=== PATIENT | male | born 1940 | race Caucasian/White ===

== ENCOUNTER 2020-04-07 08:49 | Emergency (ER) | payer MEDICARE, OTHER ==
--- NOTE | 2020-04-07 09:39 | ER Document Report ---
ED General - General Chief Complaint: Flank Pain Stated Complaint: RIGHT BACK/FLANK PAIN Time Seen by Provider: 04/07/20 09:32 Primary Care Provider: ERNESTINE BOOTH MD [Primary Care Provider] - Follow up as needed Mode of Arrival: Ambulatory Information source: Patient Notes: 79-year-old male patient presents emergency department chief complaint of right- sided flank pain that began abruptly at 330 this morning. He states the pain is severe. He states he has had a history of kidney stones and this pain is much worse than that. He denies any other associated symptoms. He reports he felt fine when he went to sleep last night. Denies any fever, chills, nausea, vom iting, diarrhea, chest pain or shortness of breath. - Related Data Allergies/Adverse Reactions: No Known Allergies Allergy (Verified 04/07/20 09:19) Past Medical History - General Information source: Patient - Social History Smoking Status: Never Smoker Frequency of alcohol use: None Family History: CAD, DM - Medical History Medical History: Negative Past Surgical History: Reports: Hx Herniorrhaphy Review of Systems - Review of Systems Genitourinary: Flank pain Neurological/Psychological: Other - Difficulty putting thoughts together -: Yes All other systems reviewed and negative Physical Exam - Vital signs Vitals: Temp Pulse Resp BP Pulse Ox 97.8 F 52 L 20 153/63 H 98 04/07/20 09:07 04/07/20 09:07 04/07/20 09:07 04/07/20 09:07 04/07/20 09:07 - Notes Notes: PHYSICAL EXAMINATION: GENERAL: Well-appearing, well-nourished and in no acute distress. HEAD: Atraumatic, normocephalic. EYES: Pupils equal round and reactive to light, extraocular movements intact, sclera anicteric, conjunctiva are normal. ENT: Nares patent, oropharynx clear without exudates. Moist mucous membranes. NECK: Normal range of motion, supple without lymphadenopathy LUNGS: Breath sounds clear to auscultation bilaterally and equal. No wheezes rales or rhonchi. HEART: Regular rate and rhythm without murmurs ABDOMEN: Soft, nontender, nondistended abdomen. No guarding, no rebound. No masses appreciated. Musculoskeletal: Normal range of motion, no pitting or edema. No cyanosis. NEUROLOGICAL: Cranial nerves grossly intact. Normal speech, normal gait. Normal sensory, motor exams PSYCH: Normal mood, normal affect. SKIN: Warm, Dry, normal turgor, no rashes or lesions noted. Course - Re-evaluation Re-evalutation: 04/07/20 09:38 I was called up to the triage area to evaluate this patient with the nurse. The nurse was concerned this patient is presenting with chief complaint of flank pain however patient was having difficulty putting his thoughts together kept saying I do not remember with basic questions. Patient is alert and oriented x4, he has no focal neurological deficits however he does report for the last hour he is at difficulty gathering his thoughts. He states his pain is worse than any kidney stone he has ever had. He does not appear to be in any acute distress at this time. I discussed the case briefly with attending physician Dr. Kim, we will initiate a stroke protocol but will also do a CTA of the chest abdomen and pelvis to ensure that patient's flank pain is not from an aortic dissection. 04/07/20 10:25 Patient reevaluated at this time. He has been to CT but we do not have any results yet. He is currently rating his pain 7/10 to the right flank, states it is a constant pain. Denies any alleviating or exacerbating factors. He does not appear to be in any acute distress at this time. 04/07/20 12:12 Call placed to [facility] to initiate request for transfer as patient has an infected kidney stone. Patient currently resting comfortably, he states the Toradol has completely relieved his pain. His vital signs are stable. 04/07/20 13:34 I have spoken with Dr. Mir from urology at [facility] and also the hospitalist. Both of these physicians do agree that patient needs to be transferred for stent placement. There working out the details on who will be accepting. Patient and spouse are updated on plan of care, they understand that he will be transferred to [facility] once we have an accepting physician and bed placement. Patient continues to deny any pain. 1700-patient reevaluated at this time, denies any pain. He is stable for transport. Transport is at the bedside. Patient was accepted by Dr. Cloud. - Vital Signs Vital signs: Temp Pulse Resp BP Pulse Ox 99.0 F 52 L 16 144/60 H 99 04/07/20 16:21 04/07/20 09:07 04/07/20 16:39 04/07/20 16:39 04/07/20 16:39 - Laboratory Result Diagrams: 04/07/20 10:31 04/07/20 10:31 Laboratory results interpreted by me: 04/07/20 04/07/20 04/07/20 10:31 10:31 10:31 WBC 19.3 H RBC 4.14 L Hgb 13.4 L Seg Neuts % (Manual) 93 H Lymphocytes % (Manual) 5 L Monocytes % (Manual) 2 L Abs Neuts (Manual) 17.9 H APTT 23.0 L BUN 21 H Glucose 116 H Urine Protein Urine Nitrite Ur Leukocyte Esterase 04/07/20 10:51 WBC RBC Hgb Seg Neuts % (Manual) Lymphocytes % (Manual) Monocytes % (Manual) Abs Neuts (Manual) APTT BUN Glucose Urine Protein 30 H Urine Nitrite POSITIVE H Ur Leukocyte Esterase SMALL H Discharge - Discharge Clinical Impression: Kidney stone on right side Urinary tract infection Qualifiers: Urinary tract infection type: site unspecified Hematuria presence: with hematuria Qualified Code(s): N39.0 - Urinary tract infection, site not specified Condition: Stable Disposition: [facility] Referrals: ERNESTINE BOOTH MD [Primary Care Provider] - Follow up as needed
[2020-04-07] MEDS ORDERED: KETOROLAC TROMETHAMINE INJ/PF 30 MG/1 ML SDV IV ONE (10:25)
--- NOTE | 2020-04-07 10:30 | RADIOLOGY REPORT (SQ) ---
EXAM DESCRIPTION: CT HEAD WITHOUT IMAGES COMPLETED DATE/TIME: 04/07/2020 10:06 am REASON FOR STUDY: stroke alert COMPARISON: None. TECHNIQUE: Axial images acquired through the brain without intravenous contrast. Images reviewed wi th bone, brain and subdural windows. Additional sagittal and coronal reconstructions were generated. Images stored on PACS. All CT scanners at this facility use dose modulation, iterative reconstruction, and/or weight based d osing when appropriate to reduce radiation dose to as low as reasonably achievable (ALARA). [facility]: Dose Right [facility]: CareDose [facility]: Dose Right [facility]: Teradose 4D [facility]: [employer]tank RADIATION DOSE: CT Rad equipment meets quality standard of care and radiation dose reduction techniq ues were employed. CTDIvol: 53.2 mGy. DLP: 1070 mGy-cm. LIMITATIONS: None. FINDINGS: There is diffuse age-appropriate cerebral and cerebellar volume loss. The areas of low-at tenuation in the supratentorial periventricular and subcortical white matter likely represent the seq uela of chronic microvascular ischemia. There is no acute intracranial hemorrhage, vascular territor ial infarct, extra-axial fluid collection, mass effect or midline shift. The caliber of the ventricl es is concordant with the degree of sulcation. The alonzo-white matter differentiation is preserved. There is no effacement of the cerebral sulci or basal subarachnoid cisterns. The orbits and globes are intact. There is mucoperiosteal thickening and partial opacification of th e maxillary sinuses. The mastoid air cells are clear. There is no fracture of the calvarium. IMPRESSION: 1. Sequela of chronic microvascular ischemia without a superimposed acute intracranial a bnormality. 2. Mucoperiosteal thickening or partial opacification of the maxillary sinuses. Correlation with cli nical findings to exclude an acute sinusitis is recommended. EVIDENCE OF ACUTE STROKE: NO. COMMENT: Quality ID # 436: Final reports with documentation of one or more dose reduction techniques (e.g., Automated exposure control, adjustment of the mA and/or kV according to patient size, use of iterative reconstruction technique) TECHNICAL DOCUMENTATION: JOB ID: [id number] 2010 [employer]- All Rights Reserved Reading location - IP/workstation name: [email or web address]
--- NOTE | 2020-04-07 10:39 | RADIOLOGY REPORT (SQ) ---
EXAM DESCRIPTION: CTA CHEST IMAGES COMPLETED DATE/TIME: 04/07/2020 10:10 am REASON FOR STUDY: R flank pain COMPARISON: None. TECHNIQUE: CT scan of the chest performed using helical scanning technique with dynamic intravenous contrast injection. Images reviewed with lung, soft tissue and bone windows. Reconstructed coronal and sagittal MPR images reviewed. Additional 3 dimensional post-processing performed to develop Maximal Intensity Projection images (CT P). All images stored on PACS. All CT scanners at this facility use dose modulation, iterative reconstruction, and/or weight based d osing when appropriate to reduce radiation dose to as low as reasonably achievable (ALARA). [facility]: Dose Right [facility]: CareDose [facility]: Dose Right [facility]: Teradose 4D [facility]: [employer] Interactive CONTRAST TYPE AND DOSE: Contrast/concentration: Isovue 350.00 mmol/ml; Total Contrast Delivered: 69. 0 ml; Total Saline Delivered: 70.0 ml RENAL FUNCTION: Due to the severity of the patient's conditions the CT was performed without a BUN o r creatinine test. RADIATION DOSE: CT Rad equipment meets quality standard of care and radiation dose reduction techniq ues were employed. CTDIvol: 2.8 - 17.0 mGy. DLP: 956 mGy-cm. LIMITATIONS: None. FINDINGS: LUNGS AND PLEURA: The trachea main bronchi are patent. There is no consolidation, ground- glass opacification, pleural effusion or pneumothorax AORTA AND GREAT VESSELS: No aneurysm or dissection of the thoracic aorta. HEART: Cardiomegaly. There is no pericardial effusion. PULMONARY ARTERIES: Nondiagnostic due to suboptimal contrast opacification. HILAR AND MEDIASTINAL STRUCTURES: No adenopathy or mass. HARDWARE: None in the chest. UPPER ABDOMEN: Refer to the separate report of the CT of the abdomen. THYROID AND OTHER SOFT TISSUES: No adenopathy or mass. BONES: No acute abnormality. 3D MIPS: Confirm above findings. OTHER: No other findings. IMPRESSION: No acute cardiopulmonary process. COMMENT: Quality ID # [id number]: Final reports with documentation of one or more dose reduction techniques (e.g., Automated exposure control, adjustment of the mA and/or kV according to patient size, use of iterative reconstruction technique) TECHNICAL DOCUMENTATION: JOB ID: [id number] 2010 [employer]- All Rights Reserved Reading location - IP/workstation name: [email or web address]
--- NOTE | 2020-04-07 10:47 | RADIOLOGY REPORT (SQ) ---
EXAM DESCRIPTION: CTA ABDOMEN/PELVIS W WO IMAGES COMPLETED DATE/TIME: 04/07/2020 10:10 am REASON FOR STUDY: R flank pain COMPARISON: CT of the abdomen and pelvis without contrast from 05/11/2013. TECHNIQUE: CT scan of the abdominal aorta extending to the iliac bifurcation performed with intraven ous contrast using helical scanning technique with dynamic intravenous contrast injection. Images rev iewed with lung, soft tissue, and bone windows. Reconstructed coronal and sagittal MPR images reviewe d. All images stored on PACS. Advanced 3D imaging as volume rendering, MIPS, SSD performed? yes All CT scanners at this facility use dose modulation, iterative reconstruction, and/or weight based d osing when appropriate to reduce radiation dose to as low as reasonably achievable (ALARA). [facility]: Dose Right [facility]: CareDose [facility]: Dose Right [facility]: Teradose 4D [facility]: [employer] CONTRAST TYPE AND DOSE: 69 mL Omnipaque 350- low osmolar. RENAL FUNCTION: Due to the severity of the patient's conditions the CT was performed without a BUN o r creatinine test. LIMITATIONS: None. FINDINGS: AORTA AND VESSELS: No aneurysm or dissection of the abdominal aorta. The celiac, SMA, bereket al arteries and HIWOT are patent. The iliac arteries are patent without stenosis, aneurysm or dissectio n. LUNG BASES: Refer to the separate CT of the chest report. LIVER: The morphology of the liver is noncirrhotic. There is no arterially enhancing hepatic mass. SPLEEN: No splenomegaly or splenic mass. PANCREAS: No acute gross abnormality of the pancreas. GALLBLADDER: No acute gross abnormality of the gallbladder. ADRENAL GLANDS: No mass or asymmetry RIGHT KIDNEY AND URETER: 7 mm calculus in the right ureterovesicular junction (image 235 of series 3) associated with moderate to severe ipsilateral hydroureteronephrosis, delayed uptake and excretion o f the intravenous contrast and asymmetric pararenal fluid. There there are additional calculi in the lower pole of the kidney that measure 9 mm and less than 3 mm. There is no solid renal mass. LEFT KIDNEY AND URETER: 3 mm caliceal calculus in the interpolar portion of the kidney. There is no solid mass, hydronephrosis, hydroureter or ureterolithiasis. RETROPERITONEUM: No retroperitoneal adenopathy, hemorrhage or mass. BOWEL AND PERITONEAL CAVITY: Colonic diverticulosis without diverticulitis. There is no bowel obstru ction, bowel wall thickening or pericolonic/ perienteric inflammation. There is no mesenteric adenop athy, free intraperitoneal fluid or mesenteric/ omental inflammation. APPENDIX: Normal. ABDOMINAL WALL: Fat containing right inguinal hernia. PELVIS: Prostatomegaly. BONY STRUCTURES: No acute abnormality. 3-D IMAGING: Confirms the above findings. OTHER: No other findings. IMPRESSION: 1. No abdominal aortic aneurysm, dissection or stenosis. 2. Obstructive 7 mm caliceal calculus in the right ureterovesicular junction associated with moderat e to severe ipsilateral hydroureteronephrosis. TECHNICAL DOCUMENTATION: JOB ID: [id number] Quality ID # [id number]: Final reports with documentation of one or more dose reduction techniques (e.g., Au tomated exposure control, adjustment of the mA and/or kV according to patient size, use of iterative reconstruction technique) 2010 [employer]- All Rights Reserved Reading location - IP/workstation name: [email or web address]
[2020-04-07 10:49] LABS: HEMATOCRIT 39.8 % (37.9-51.0); HEMOGLOBIN 13.4 g/dL (13.5-17.0); MEAN CORPUSCULAR HEMOGLOBIN 32.4 pg (27.0-33.4); MEAN CORPUSCULAR HGB CONC 33.7 g/dL (32.0-36.0); MEAN CORPUSCULAR VOLUME 96 fl (80-97); PLATELET COUNT 391 10^3/uL (150-450); RED BLOOD COUNT 4.14 10^6/uL (4.35-5.55); RED CELL DISTRIBUTION WIDTH 13.1 % (11.5-14.0); WHITE BLOOD COUNT 19.3 10^3/uL (4.0-10.5)
[2020-04-07 10:58] LABS: PROTHROMBIN TIME 12.9 SEC (11.4-15.4)
[2020-04-07 10:59] LABS: INTERNATIONAL RATION (INR) 0.95
[2020-04-07 11:05] LABS: ABSOLUTE MONOCYTES # (MANUAL) 0.4 10^3/uL (0.1-1.4); BASOPHILS % (MANUAL) 0 % (0-2); EOSINOPHILS % (MANUAL) 0 % (0-6); LYMPHOCYTES % (MANUAL) 5 % (13-45); MONOCYTES % (MANUAL) 2 % (3-13); SEGMENTED NEUTROPHILS % (MAN) 93 % (42-78); TOTAL CELLS COUNTED 100
[2020-04-07 11:07] LABS: OVALOCYTES SLIGHT; PLATELET COMMENT ADEQUATE; POIKILOCYTOSIS SLIGHT
[2020-04-07 11:15] LABS: ALBUMIN 3.9 g/dL (3.5-5.0); ALKALINE PHOSPHATASE 64 U/L (38-126); ASPARTATE AMINO TRANSFERASE 30 U/L (17-59); BILIRUBIN,DIRECT 0.1 mg/dL (0.0-0.4); BILIRUBIN,TOTAL 0.5 mg/dL (0.2-1.3); BLOOD UREA NITROGEN 21 mg/dL (7-20); CREATINE KINASE 110 U/L (55-170); GLUCOSE 116 mg/dL (75-110); TOTAL PROTEIN 6.6 g/dL (6.3-8.2)
[2020-04-07 11:21] LABS: APPEARANCE,URINE CLEAR; BILIRUBIN,URINE NEGATIVE (NEGATIVE); COLOR,URINE YELLOW; GLUCOSE, URINE NEGATIVE (NEGATIVE); KETONES,URINE NEGATIVE (NEGATIVE); LEUKOCYTE ESTERASE,URINE SMALL (NEGATIVE); NITRITE,URINE POSITIVE (NEGATIVE); PROTEIN,URINE 30 mg/dL (NEGATIVE); UROBILINOGEN,URINE NEGATIVE mg/dL (<2.0)
[2020-04-07 11:25] LABS: CREATINE KINASE MB 3.51 ng/mL (<4.55)
[2020-04-07 11:27] LABS: TROPONIN I < 0.012 ng/mL
[2020-04-07 11:35] LABS: ANION GAP 7 (5-19); CARBON DIOXIDE 30 mmol/L (22-30); CHLORIDE 103 mmol/L (98-107); POTASSIUM 4.5 mmol/L (3.6-5.0)
[2020-04-07] MEDS ORDERED: NORMAL SALINE 1000 ML 1,000 ML IV ONE (12:09)
[2020-04-07] MEDS ORDERED: TAMSULOSIN HCL 0.4 MG CAP.SR.24H PO ONE (12:11)
[2020-04-07] MEDS ORDERED: CEFTRIAXONE 1 GM/D5W RTU 1 GM/50 ML RTUPB IV ONE (12:14)
--- NOTE | 2020-04-07 16:43 | EKG REPORT ---
SEVERITY:- BORDERLINE ECG - SINUS RHYTHM BORDERLINE T ABNORMALITIES, ANT-LAT LEADS : Confirmed by: Quinton Desai 07-Apr-2020 16:42:54
[2020-04-07 16:49] VITALS: BP 144/60
== END 2020-04-07 17:08 | disposition short-term general hospital (02) ==
LOC: ER 08:49
DX: N39.0 Urinary tract infection, site not specified (principal); N20.0 Calculus of kidney; R10.9 Unspecified abdominal pain; M54.9 Dorsalgia, unspecified; R47.01 Aphasia
CPT/HCPCS: 93005; 99285; 96361; 96375; 96365; 36415; 87086; 82553; 82550; 85025; 85610; 85730; 0241U ×4; 80053; 81001; 84484; 70450; 71275; 74174; 93010; J1885; A9270; J7030; J0696; C9803